=== PATIENT | female | born 1960 | race African-American/Black ===

== ENCOUNTER 2018-03-29 18:20 | Emergency (ER) | payer MEDICAID ==
[~2018-03-29] VITALS: Ht 172.7 cm; Wt 106.0 kg
[2018-03-29] MEDS ORDERED: MAGNESIUM 2 G PREMIX 50 ML IV STA (20:23)
[2018-03-29] MEDS ORDERED: LEVOFLOXACIN 750MG PREMIX 150 ML IV STA (20:23)
[2018-03-29] MEDS ORDERED: ALBUTEROL (0.083%) 2.5MG/3ML NEB HHN STA (20:23)
[2018-03-29] MEDS ORDERED: IPRATROPIUM BROMIDE (0.02%) 0.5MG/2.5ML NEB HHN STA (20:23)
[2018-03-29] MEDS ORDERED: METHYLPREDNISOLONE SOD SUCC 125 MG/2 ML VIAL IV STA (20:23)
[2018-03-30 00:15] VITALS: BP 149/91
== END 2018-03-30 00:11 | disposition home or self-care (01) ==
LOC: ER 18:20
DX: J44.1 Chronic obstructive pulmonary disease with (acute) exacerbation (principal); I10 Essential (primary) hypertension; F41.9 Anxiety disorder, unspecified; F12.10 Cannabis abuse, uncomplicated; F17.200 Nicotine dependence, unspecified, uncomplicated; Z88.5 Allergy status to narcotic agent
CPT/HCPCS: 71045; 94644; 96365; 96366; 96367; 96375; 99285; 99406; J1956; J2930; J3475; 99283; J7611

== ENCOUNTER 2018-04-04 12:28 | Emergency (ER) | payer MEDICAID ==
[~2018-04-04] VITALS: Ht 142.2 cm; Wt 91.0 kg
[2018-04-04] MEDS ORDERED: ALBUTEROL (0.083%) 2.5MG/3ML NEB HHN STA ×2 (13:13→14:49)
[2018-04-04] MEDS ORDERED: IPRATROPIUM BROMIDE (0.02%) 0.5MG/2.5ML NEB HHN STA (13:13)
[2018-04-04] MEDS ORDERED: METHYLPREDNISOLONE SOD SUCC 125 MG/2 ML VIAL IV STA (13:13)
[2018-04-04 13:49] LABS: BASOPHILS % 0.6 % (0.0-2.0); EOSINOPHILS % 1.4 % (0.0-5.0); HEMATOCRIT. 36.8 % (36.0-48.0); HEMOGLOBIN. 12.2 g/dL (12.0-16.0); LYMPHOCYTES % 29.3 % (20.0-50.0); MEAN CORPUSCULAR HEMOGLOBIN 27.7 pg (28.0-32.0); MEAN CORPUSCULAR VOLUME 83.8 fL (81.0-99.0); MEAN PLATELET VOLUME 8.5 fl (7.4-10.4); MONOCYTES % 5.9 % (2.0-8.0); NEUTROPHILS % 62.8 % (40.0-76.0); PLATELET 338 x1000/uL (130-400); RED BLOOD CELL COUNT 4.39 mill/uL (4.2-5.4); RED CELL DISTRIBUTION WIDTH 15.2 % (11.6-14.6)
[2018-04-04 13:51] LABS: CHLORIDE 107 mEq/L (98-107)
[2018-04-04 17:51] VITALS: BP 156/85
== END 2018-04-04 17:55 | disposition home or self-care (01) ==
LOC: ER 13:00
DX: J45.901 Unspecified asthma with (acute) exacerbation (principal); F41.9 Anxiety disorder, unspecified; I10 Essential (primary) hypertension; F17.200 Nicotine dependence, unspecified, uncomplicated; Z88.5 Allergy status to narcotic agent
CPT/HCPCS: 36415; 71045; 80053; 83880; 84484; 85025; 93005; 96374; 99285; J2930; J7611